=== PATIENT | male | born 1940 | race Caucasian/White ===

== ENCOUNTER 2020-07-31 02:49 | Inpatient (IN) | payer MEDICARE ==
[~2020-07-31] VITALS: Ht 175.3 cm; Wt 57.2 kg
[2020-07-31] MEDS ORDERED: HYDR-4384 PO (03:58)
[2020-07-31] MEDS ORDERED: OMEP10CA5 PO (03:59)
[2020-07-31] MEDS ORDERED: MAGNESIUM HYDROXIDE 30 ML UDC PO PRN (04:00)
[2020-07-31] MEDS ORDERED: ACETAMINOPHEN 325 MG TABLET PO PRN (04:00)
[2020-07-31] MEDS ORDERED: MAG HYDROX/AL HYDROX/SIMETH 30 ML UDC PO PRN (04:00)
[2020-07-31] MEDS ORDERED: DOCU100C36 PO (04:00)
[2020-07-31 04:05] VITALS: BP 120/75
[2020-07-31] MEDS ORDERED: BLOOD SUGAR DIAGNOSTIC 1 EACH STRIP IN ONE (04:30)
[2020-07-31] MEDS ORDERED: DOCUSATE SODIUM 100 MG CAPSULE PO PRN (13:00)
[2020-07-31] MEDS ORDERED: HYDROCODONE/APAP 5/325MG TABLET PO PRN (13:00)
[2020-07-31] MEDS: QUETIAPINE FUMARATE 25 MG TABLET PO SCH ×2 (13:50→17:18)
[2020-07-31 16:00] VITALS: BP 118/59
[2020-07-31 19:47] VITALS: BP 129/80
[2020-07-31] MEDS: LORAZEPAM 0.5 MG TABLET PO PRN (20:16)
[2020-08-01] MEDS: TEMAZEPAM 7.5 MG CAPSULE PO PRN (00:52)
[2020-08-01 06:49] LABS: BASOPHILS % (AUTO) 0.9 % (0.0-2.0); EOSINOPHILS % (AUTO) 2.6 % (0.0-6.0); HEMATOCRIT 41 % (39-51); LYMPHOCYTES # (AUTO) 0.5 /CMM (0.8-4.8); LYMPHOCYTES % (AUTO) 11.7 % (20.0-44.0); MEAN CORPUSCULAR HGB CONC 32 g/dl (31.0-36.0); MEAN CORPUSCULAR VOLUME 91 fL (80-96); MONOCYTES # (AUTO) 0.5 /CMM (0.1-1.30); MONOCYTES % (AUTO) 10.8 % (2.0-12.0); NEUTROPHILS # (AUTO) 3.4 /CMM (1.8-8.9); PLATELET COUNT (AUTO) 229 /CMM (150-450); RED BLOOD CELL COUNT(AUTO) 4.44 MIL/uL (4.5-6.0); WHITE BLOOD COUNT (AUTO) 4.6 K/uL (4.3-11.0)
[2020-08-01 07:05] LABS: CALCIUM, SERUM 9.1 mg/dL (8.5-10.1); CREATININE 0.6 mg/dL (0.6-1.3); POTASSIUM 4.2 mmol/L (3.5-5.1)
[2020-08-01] MEDS ORDERED: OMEPRAZOLE 20 MG CAPSULE.DR PO SCH (07:30)
[2020-08-01 08:00] VITALS: BP 148/76
[2020-08-01] MEDS: PANTOPRAZOLE 40 MG TABLET.DR PO SCH (10:44)
[2020-08-01] MEDS: QUETIAPINE FUMARATE 25 MG TABLET PO SCH ×2 (10:45→17:22)
[2020-08-01 16:00] VITALS: BP 145/76
[2020-08-01 20:00] VITALS: BP 148/71
[2020-08-02] MEDS: PANTOPRAZOLE 40 MG TABLET.DR PO SCH (07:30)
[2020-08-02 08:00] VITALS: BP 151/75
[2020-08-02] MEDS: QUETIAPINE FUMARATE 25 MG TABLET PO SCH ×2 (09:00→17:46)
[2020-08-02 09:29] LABS: OCCULT BLOOD STOOL NEGATIVE (NEGATIVE)
[2020-08-02 16:00] VITALS: BP 151/73
[2020-08-02 20:00] VITALS: BP 124/62
[2020-08-03] MEDS: PANTOPRAZOLE 40 MG TABLET.DR PO SCH (07:30)
[2020-08-03] MEDS: QUETIAPINE FUMARATE 25 MG TABLET PO SCH ×2 (09:41→17:11)
[2020-08-03 11:32] VITALS: BP 144/94
[2020-08-03 16:49] VITALS: BP 137/61
[2020-08-03] MEDS: LOPERAMIDE HCL (2 MG CAP) 2 MG CAPSULE PO PRN (18:36)
[2020-08-03 20:00] VITALS: BP 135/70
[2020-08-04] MEDS: PANTOPRAZOLE 40 MG TABLET.DR PO SCH (07:30)
[2020-08-04 08:00] VITALS: BP 106/66
[2020-08-04] MEDS: QUETIAPINE FUMARATE 25 MG TABLET PO SCH ×3 (09:15→17:39)
[2020-08-04 16:00] VITALS: BP 113/63
[2020-08-04] MEDS: LOPERAMIDE HCL (2 MG CAP) 2 MG CAPSULE PO PRN (17:39)
[2020-08-04 20:21] VITALS: BP 131/70
[2020-08-05] MEDS: TEMAZEPAM 7.5 MG CAPSULE PO PRN (02:26)
[2020-08-05 08:00] VITALS: BP 130/65
[2020-08-05] MEDS: QUETIAPINE FUMARATE 25 MG TABLET PO SCH ×3 (09:56→17:34)
[2020-08-05] MEDS: PANTOPRAZOLE 40 MG TABLET.DR PO SCH (09:56)
[2020-08-05] MEDS: LORAZEPAM 0.5 MG TABLET PO PRN (16:44)
[2020-08-05 17:03] VITALS: BP 114/54
[2020-08-05] MEDS: ENSURE ENLIVE CHOC 237 ML CAN PO SCH (17:53)
[2020-08-05 20:09] VITALS: BP 113/57
[2020-08-06 08:00] VITALS: BP 104/51
[2020-08-06] MEDS: PANTOPRAZOLE 40 MG TABLET.DR PO SCH (08:51)
[2020-08-06] MEDS: QUETIAPINE FUMARATE 25 MG TABLET PO SCH ×3 (08:51→16:48)
[2020-08-06] MEDS: ENSURE ENLIVE CHOC 237 ML CAN PO SCH ×3 (08:52→16:48)
[2020-08-06 16:00] VITALS: BP 124/75
[2020-08-06] MEDS: LORAZEPAM 0.5 MG TABLET PO PRN (16:47)
[2020-08-06 20:30] VITALS: BP_SYST 108; BP_SYST 114; BP_DIAS 62; BP_DIAS 74
[2020-08-07 08:00] VITALS: BP 119/68
[2020-08-07] MEDS: ENSURE ENLIVE CHOC 237 ML CAN PO SCH ×3 (08:00→16:51)
[2020-08-07] MEDS: PANTOPRAZOLE 40 MG TABLET.DR PO SCH (10:01)
[2020-08-07] MEDS: QUETIAPINE FUMARATE 25 MG TABLET PO SCH ×2 (10:02→16:54)
[2020-08-07 16:00] VITALS: BP 129/59
[2020-08-07 20:00] VITALS: BP 141/73
[2020-08-08] MEDS ORDERED: Z GUARD REMEDY 2 OZ OINT TP PRN (06:00)
[2020-08-08 08:00] VITALS: BP 118/62
[2020-08-08] MEDS: ENSURE ENLIVE CHOC 237 ML CAN PO SCH ×3 (08:17→17:17)
[2020-08-08] MEDS: QUETIAPINE FUMARATE 25 MG TABLET PO SCH ×2 (08:17→17:17)
[2020-08-08] MEDS: PANTOPRAZOLE 40 MG TABLET.DR PO SCH (08:17)
[2020-08-08 16:00] VITALS: BP 115/56
[2020-08-08 20:09] VITALS: BP 104/46
[2020-08-09 08:00] VITALS: BP 121/61
[2020-08-09] MEDS: PANTOPRAZOLE 40 MG TABLET.DR PO SCH (08:55)
[2020-08-09] MEDS: QUETIAPINE FUMARATE 25 MG TABLET PO SCH ×2 (09:45→16:48)
[2020-08-09] MEDS: ENSURE ENLIVE CHOC 237 ML CAN PO SCH ×3 (09:48→17:14)
[2020-08-09 16:00] VITALS: BP 120/64
[2020-08-09 20:00] VITALS: BP 141/69
[2020-08-10] MEDS: PANTOPRAZOLE 40 MG TABLET.DR PO SCH (07:58)
[2020-08-10 08:00] VITALS: BP 150/85
[2020-08-10] MEDS: ENSURE ENLIVE CHOC 237 ML CAN PO SCH ×3 (08:54→16:55)
[2020-08-10] MEDS: QUETIAPINE FUMARATE 25 MG TABLET PO SCH ×2 (08:54→16:55)
[2020-08-10 16:00] VITALS: BP 139/66
[2020-08-10 17:13] LABS: BILIRUBIN,URINE NEGATIVE (NEGATIVE); COLOR,URINE YELLOW (YELLOW); LEUKOCYTE ESTERASE ,URINE LARGE (NEGATIVE); NITRITE, URINE POSITIVE (NEGATIVE); PH,URINE 5.5 (5.0-8.0); PROTEIN,URINE TRACE mg/dl (NEGATIVE); UGLUCOSE NEGATIVE (NEGATIVE); UROBILINOGEN,URINE 0.2 EU/dL (0.2)
[2020-08-10 17:27] LABS: BACTERIA,URINE 4+ /HPF (None Seen); RBC,URINE 21-50 /HPF (0-2); SQUAMOUS EPITHELIAL CELL,UR 0-2 /HPF (None Seen); WBC,URINE 81-100 /HPF (0-3)
[2020-08-10 21:07] VITALS: BP 120/63
[2020-08-10] MEDS: LORAZEPAM 0.5 MG TABLET PO PRN (21:52)
[2020-08-11 08:00] VITALS: BP 133/65
[2020-08-11] MEDS: PANTOPRAZOLE 40 MG TABLET.DR PO SCH (08:40)
[2020-08-11] MEDS: QUETIAPINE FUMARATE 25 MG TABLET PO SCH ×2 (08:41→16:19)
[2020-08-11] MEDS: ENSURE ENLIVE CHOC 237 ML CAN PO SCH ×3 (08:41→16:19)
[2020-08-11] MEDS: CEPHALEXIN MONOHYDRATE 500 MG CAPSULE PO SCH ×2 (10:44→21:28)
[2020-08-11 16:00] VITALS: BP 119/61
[2020-08-11 20:36] VITALS: BP 103/49
[2020-08-11] MEDS: LORAZEPAM 0.5 MG TABLET PO PRN (21:34)
[2020-08-12 08:00] VITALS: BP 121/63
[2020-08-12] MEDS: QUETIAPINE FUMARATE 25 MG TABLET PO SCH (08:49)
[2020-08-12] MEDS: PANTOPRAZOLE 40 MG TABLET.DR PO SCH (08:49)
[2020-08-12] MEDS: ENSURE ENLIVE CHOC 237 ML CAN PO SCH ×2 (08:50→12:57)
[2020-08-12] MEDS: CEPHALEXIN MONOHYDRATE 500 MG CAPSULE PO SCH (08:50)
== END 2020-08-12 13:00 | DRG 885 ==
LOC: GPS 02:49
PROVIDERS: ADMIT Psychiatry & Neurology Psychiatry; ATTEND Nurse Practitioner Acute Care
DX: F33.3 Major depressive disorder, recurrent, severe with psychotic symptoms (principal); E43 Unspecified severe protein-calorie malnutrition; C90.00 Multiple myeloma not having achieved remission; F03.91 Unspecified dementia, unspecified severity, with behavioral disturbance; N39.0 Urinary tract infection, site not specified; R64 Cachexia; Z68.1 Body mass index [BMI] 19.9 or less, adult; F29 Unspecified psychosis not due to a substance or known physiological condition; F41.9 Anxiety disorder, unspecified; K21.9 Gastro-esophageal reflux disease without esophagitis; B96.89 Other specified bacterial agents as the cause of diseases classified elsewhere; R79.89 Other specified abnormal findings of blood chemistry
CPT/HCPCS: 36415; 80048-TC; 80061-TC; 81001; 82272-TC; 82962-TC; 85025-TC; 87086-TC; 87186-TC; 97116-TC; 97530-TC